=== PATIENT | female | born 1985 | race Caucasian/White ===

== ENCOUNTER 2016-10-20 18:32 | Emergency (ER) | payer MEDICAID ==
--- NOTE | 2016-10-31 10:05 | ER ---
ADMIT: 10/20/2016 RM/LOC: ER [facility] MR#: [id number] [address] [address] KATRIN PARKER [address] [place] [id number] Emergency Room Report SEX: F AGE: 31 : 1985 DATE: 10/20/2016 ADDENDUM: CHIEF COMPLAINT: Vaginal spotting. HISTORY OF PRESENT ILLNESS: This is a 31-year-old who had some brownish discharge just for the last couple of days, a little bit of cramping. She did have an ultrasound last week that shows that she was 8 weeks . COURSE IN THE EMERGENCY ROOM: CBC, Rh and beta HCG was done. Her blood type is A positive. Her beta HCG is 68,953. White count is 13.8, hemoglobin is 12.5, platelets are 296. At this time, I told her that I think fetus is okay, but she needs to follow up with her PCP in 2 days to recheck the beta HCG. I told her the reason she needs to come back to the ER is if she is bleeding through 2 pads in 2 consecutive hours. CLINICAL IMPRESSION: Threatened . MALA Mckeon / Saji Sepulveda MD / louisa JOB #: [id number] CC: Stevie Aranda MD, Attending Physician Raleigh Yeboah, Family Physician
== END 2016-10-20 20:35 | disposition home or self-care (01) ==
LOC: ER 18:32
DX: O20.0 Threatened abortion (principal); O99.331 Smoking (tobacco) complicating pregnancy, first trimester; F17.210 Nicotine dependence, cigarettes, uncomplicated; Z3A.08 8 weeks gestation of pregnancy

== ENCOUNTER 2016-11-26 21:54 | Emergency (ER) | payer MEDICAID ==
--- NOTE | 2016-12-15 21:34 | ER ---
ADMIT: 11/26/2016 RM/LOC: ER [facility] MR#: [id number] [address] [facility] [id number] [place], [place] [address] KATRIN PARKER [address] [place] [id number] Emergency Room Report SEX: F AGE: 31 : 1985 DATE: 11/26/2016 HISTORY OF PRESENT ILLNESS: A 31-year-old who is 15 weeks' , comes to the Emergency Department with pelvic pain times last 1/2 days of spotting, but she is not spotting now. She has had normal IUP. 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 For some reason, she came here to the Emergency Department. History is somewhat vague anyway. Ultrasound shows a normal IUP. A beta-HCG is 26,440. She was instructed to follow up with her [employer] yet this week. DIAGNOSIS: and pelvic pain. UA was normal. Stevie Aranda MD/ louisa JOB #: [id number] CC: Can Hubbard MD, Attending Physician Laisha Wen MD, Family Physician
== END 2016-11-26 23:55 | disposition home or self-care (01) ==
LOC: ER 21:54
DX: O99.89 Other specified diseases and conditions complicating pregnancy, childbirth and the puerperium (principal); R10.2 Pelvic and perineal pain; O99.332 Smoking (tobacco) complicating pregnancy, second trimester; Z3A.15 15 weeks gestation of pregnancy; Z79.82 Long term (current) use of aspirin

== ENCOUNTER 2016-12-14 21:10 | Emergency (ER) | payer MEDICAID ==
--- NOTE | 2017-01-02 07:35 | ER ---
ADMIT: 12/14/2016 RM/LOC: ER [facility] MR#: [id number] [id number] [place], [place] [address] KATRIN PARKER Arianna [address] [place] [id number] Emergency Room Report SEX: F AGE: 31 : 1985 DATE: 12/14/2016 CHIEF COMPLAINT: Depression. HISTORY OF PRESENT ILLNESS: This is a 31-year-old who has a history of depression prior to her , was on Invega. She has not had the injections since she knew that she was . She said she just has felt more depressed lately. She feels like she is crying all the time. Did not know if she need to be on medications. We discussed the pros and cons of being on medication. She does have a counselor whom she has not seen for a while. We decided not to do medications and have her see her counselor more often. Do things that are enjoyable to her, and I did tell her if she felt suicidal or wanting to harm herself, to return to the ER, and at this point, she is not feeling that way. She said she has just been very tearful with this . CLINICAL IMPRESSION: Depression with . DISPOSITION: She is stable at discharge and will follow up as needed. MALA Mckeon / Raffi Ballard MD / fosterl JOB #: [id number] CC: Raffi Ballard MD, Attending Physician Raleigh Yeboah, Family Physician
== END 2016-12-14 22:22 | disposition home or self-care (01) ==
LOC: ER 21:10
DX: O99.340 Other mental disorders complicating pregnancy, unspecified trimester (principal); F32.9 Major depressive disorder, single episode, unspecified; F41.9 Anxiety disorder, unspecified; O99.330 Smoking (tobacco) complicating pregnancy, unspecified trimester; F17.210 Nicotine dependence, cigarettes, uncomplicated

== ENCOUNTER 2017-01-06 14:20 | Outpatient (CLI) | payer MEDICAID | END 2017-01-06 16:05 | disposition home or self-care (01) | LOC: BC 14:20 → 2LDRP 14:20 → BC 16:05 | DX: O99.89 Other specified diseases and conditions complicating pregnancy, childbirth and the puerperium (principal); M54.9 Dorsalgia, unspecified; Z3A.20 20 weeks gestation of pregnancy ==

== ENCOUNTER 2017-05-05 11:38 | Emergency (ER) | payer MEDICAID ==
--- NOTE | 2017-05-08 09:47 | ER ---
ADMIT: 05/05/2017 RM/LOC: ER [facility] MR#: [id number] [id number] [place], [place] [id number] KATRIN PARKER [address] [place] [address] Emergency Room Report SEX: F AGE: 31 : 1985 DATE: 05/05/2017 HISTORY OF PRESENT ILLNESS: A 31-year-old, just had a on Saturday, presents to the emergency room complaining of rectal bleeding. She does say that she is having some issues going to the bathroom, and feels like she is constipated. She did drink a whole Magnesium citrate this morning. She claims it did not help her at all. She also says that she has been taking stool softeners. REVIEW OF SYSTEMS: Negative. PAST MEDICAL HISTORY: Hypertension. She had a tubal ligation after her C- section. MEDICATIONS: Procardia. SOCIAL HISTORY: She smokes half a pack a day. PHYSICAL EXAMINATION: VITAL SIGNS: Blood pressure 180/118, heart rate is 107, respirations 20, temp is 98.1. GENERAL: Alert, mildly anxious. HEENT: Normal inspection. CVS: Regular in rate and rhythm. ABDOMEN: Nontender. RECTAL: Does not have any hemorrhoids, but does have a small fissure. SKIN: Good color and turgor. EXTREMITIES: Well perfused. NEUROLOGIC: Oriented x4. She says she did not take her blood pressure medication this morning. She just dropped a script at the pharmacy. She was diagnosed with hypertension that is the reason why she had her . CLINICAL IMPRESSION: Constipation, post , hypertension, elevated blood pressure. She had enema soapsuds, which was very helpful with good results with it. She at this time is comfortable going home Tucks for wiping her rectum after every bowel movement. Apply warm compresses to her sore breast. Mag citrate every other day to try to cleanse the colon. Continue her medications including the Procardia XL for her blood pressure. Follow up with Dr. Yeboah. MALA Sanchez / Tapan Darling MD / modl JOB #: [id number] CC: Tapan Darling MD, Attending Physician
== END 2017-05-05 14:30 | disposition home or self-care (01) ==
LOC: ER 11:38
DX: O99.63 Diseases of the digestive system complicating the puerperium (principal); K59.00 Constipation, unspecified; I10 Essential (primary) hypertension; Z98.51 Tubal ligation status; F17.210 Nicotine dependence, cigarettes, uncomplicated; Z79.899 Other long term (current) drug therapy